=== PATIENT | male | born 1990 | race Caucasian/White ===

== ENCOUNTER 2016-09-10 01:50 | Emergency (ER) | payer SELFPAY ==
[2016-09-10] MEDS ORDERED: LORazepam 1 MG TABLET PO SCH (02:30)
--- NOTE | 2016-09-10 02:36 | PDOC ---
General Adult HPI - General Chief Complaint: General Medical Stated Complaint: "My heart feels like its racing" Date Seen by Provider: 09/10/16 Time Seen by Provider: 01:55 Source: POSITIVE: Patient, Other (Mother) Exam Limitations: POSITIVE: No limitations Nurse's Notes Reviewed & Considered: Yes - History of Present Illness Initial Comment: The patient is a 26-year-old male. He complains of anxiety and a sensation of his heart "thumping hard inside my chest". No chest pain. No dyspnea. Patient states that he drank 2-1/2 pots of coffee today and also smoked a pack of cigarettes. Patient states that he is very "stressed out"because he was just released from assisted today after serving a sentence for probation violation. He also states he was recently served with divorce papers and is presently unemployed and living with his mother. He does have insomnia. History of anxiety and depression. He is presently on no medications. Have you received a tetanus shot in the past 10 years?: Yes Body Location Affected: REPORTS: Other (As above) Timing: REPORTS: Constant Duration: 4-6 hours Severity: Moderate Quality: REPORTS: Other (Patient denies any pain anywhere) Context: REPORTS: Emotional stress, Other (As above) Modifying Factors: improves with: Nothing Similar Symptoms Previously: No Recent Care Received: REPORTS: Denies Any Prior Injuries Related to Current Complaint?: No - Patient Home Medications Home Medications: Home Medications Amox Tr/Potassium Clavulanate [Augmentin 875-125 Tablet] 1 each PO BID #20 tablet 04/05/16 Hydrocodone/Acetaminophen [Lena 5-325 Tablet] 1 - 2 tab PO Q6H PRN #8 tab 04/05 Naproxen Sodium [Aleve] 220 mg PO Q8H 04/05/16 - Patient Allergies Allergies/Adverse Reactions: Allergies Allergy/AdvReac Type Severity Reaction Status Date / Time No Known Allergies Allergy Unverified 04/05/16 12:00 Past Medical History - heen HEENT History: Denies History Cardiovascular History: Denies History Respiratory History: Denies History Gastrointestinal History: Denies History Genitourinary History: Denies History Endocrine History: Denies History Musculoskeletal History: Denies History Neurological History: Denies History Blood Disorders: Denies History Psychiatric History: Denies History Cancer History: Denies History History of MDRO: No Alcohol Use: None Substance Use Type: None Previous Surgical History: No Significant Family History: No pertinent family hx Past Medical History Reviewed: Reviewed - No Changes ROS - Limitations ROS Limitations: No Limitations Constitution: REPORTS: Denies Symptoms Cardiovascular: REPORTS: Heart Palpitations Respiratory: REPORTS: Denies Resp Symptoms Neurological: REPORTS: Denies Neuro Symptoms Gastrointestinal: REPORTS: Denies GI Symptoms Endocrine: REPORTS: Denies Symptoms Musculoskeletal: REPORTS: Denies MS Symptoms Genitourinary: REPORTS: Denies Symptoms Eyes: REPORTS: Denies Symptoms ENT: REPORTS: Denies Symptoms Skin: REPORTS: Denies Skin Symptoms Lympathic: REPORTS: Denies Lympathic Symptoms Immunologic: POSITIVE: Denies Symptoms Psychiatric: POSITIVE: Anxiety General Adult Exam - General Appearance General Appearance: POSITIVE: Alert, Cooperative, No Acute Distress, No Evidence of Trauma, Anxious - HEENT HEENT: POSITIVE: Head Inspection Nml, Eyes Inspection Nml, Ears Inspection Nml, Nose Inspection Nml, Oral/Dental Inspect. Nml, Pharynx Inspect. Nml, PERRL, EOMI - Pupils Pupil Size: 4 mm: Bilateral (PERRLA) - Neck Neck: POSITIVE: Normal Inspection, Thyroid Normal - Respiratory Respiratory: POSITIVE: No Respiratory Distress, Breath Sounds Normal, Chest Non- Tender - Cardiovascular Cardiovascular: POSITIVE: Regular Rate & Rhythm, No Murmur, No Gallop, PMI Normal, Tachycardia (90-92/m) Peripheral Pulses: Radial (R): 2+, Radial (L): 2+ - Abdomen Abdomen: Soft: (All Quadrants), Normal Bowel Sounds: (All Quadrants), Denies Tenderness: (All Quadrants), No Splenomegaly: (All Quadrants), No Hepatomegaly: (All Quadrants), No Guarding: (All Quadrants), No Rebound: (All Quadrants), No Palpable Pulse: (All Quadrants), No Palpabale Mass: (All Quadrants), No Distention: (All Quadrants), No Rigidity: (All Quadrants) - Back Back: POSITIVE: Normal Inspection - Skin Skin: POSITIVE: Normal Color, Warm, Dry, No Rash - Extremities Extremity: Non-Tender: (All Extremities), Normal ROM: (All Extremities), Normal Inspection: (All Extremities) - Neurological / Psychological Neurological: POSITIVE: Oriented X3, 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 NEGATIVE: Normal Rate (Mild sinus tachycardia at 90-92/m) - Patient's Progress Pain Medication Addressed: POSITIVE: Not Applicable School/Work Release Addressed: POSITIVE: Not Applicable Re-Examine Time: 02:25 Status: POSITIVE: Unchanged - Consult Counseled: POSITIVE: Patient, Family, RE: DX, RE: Need for F/U Patient Care Time - Estimated PCT Patient Care Time (In Minutes): 30 Vital Signs - Recent Vital Signs Vital Signs: Heart rate initially 102/m, respiratory rate 18, blood pressure 130/88, temperature 97.5F, oxygen saturation on room air 97%. - VS Reviewed Vital Signs Reviewed: Yes Discharge Clinical Impression: Anxiety, Sinus tachycardia Discharge Disposition: Discharged to Home Condition: Stable Patient Instructions Given at Discharge: Anxiety (ED) Additional Instructions: Your heart rate is beating a little fast, which I believe is most likely due to your heavy caffeine use today and your heavy tobacco use. Also contributing to this is your recent life stresses which you're having. Your electrocardiogram is normal except for a normal heart rate being at the upper rate of normal. Please avoid tobacco and caffeine. I will give him a few Ativan tablets which you can take, one every 6 hours as necessary for anxiety. Return anytime if condition worsens. Please be reassured that I think you're going to be fine. Follow Up With: NONE,NONE [Primary Care Provider] - (Instructions as above. Follow-up with your primary care provider. Return here anytime if condition worsens.)
[2016-09-10 02:45] VITALS: RESP 18; TEMP 97.5
--- NOTE | 2016-09-10 02:55 | EKG ---
[address] [address] Measurements Intervals [place] Rate: 90 P: 68 [place]: 185 QRS: -11 QRSD: 80 T: 29 QT: 350 QTc: 397 Interpretive Statements SINUS RHYTHM No previous ECG available for comparison Electronically Signed On 09-10-16 15:48:22 MST by Faustino Davis [email or web address]
== END 2016-09-10 02:30 | disposition home or self-care (01) ==
LOC: ER 01:50
DX: F41.9 Anxiety disorder, unspecified (principal); R00.0 Tachycardia, unspecified
CPT/HCPCS: 93005; 93010; 99282